=== PATIENT | female | born 1950 | race African-American/Black ===

== ENCOUNTER 2018-04-13 07:01 | Day surgery (SDC) | payer OTHER ==
[2018-04-11 11:20] VITALS: BMI 37.8
[2018-04-13 08:48] VITALS: TEMP 97.6
[2018-04-13 09:16] VITALS: PULSE 60
[2018-04-13 10:24] VITALS: BP 148/79
--- NOTE | 2018-04-16 16:58 | PATH ---
Surgical Pathology Report Patient Name: ANGEL BROWN [facility]. Rec. #: [id number] /Age/Gender: 1950 (Age: 67) / F Account: [id number] Location: U-ENDOSCOPY Taken: 04/13/2018 Received: 04/13/2018 Reported: 04/16/2018 Physicians: Jatinder Bynum M.D. Specimen(s) Received A: BX 2ND PORTION DUODENUM AND DUODENAL BULB B: BX PYLORUS POLYP C: BX ANTRUM D: BX GE JUNCTION E: RECTAL POLYP Clinical History Left upper quadrant pain, gastric polyp, adenoma surveillance Postoperative diagnosis: Gastric polyp, hiatal hernia, duodenitis, rectal polyp Final Diagnosis A. DUODENUM, SECOND PORTION AND DUODENAL BULB, BIOPSY: DUODENAL MUCOSA WITH MODERATE ACUTE AND CHRONIC DUODENITIS AND PRESERVED VILLOUS ARCHITECTURE. B. STOMACH, PREPYLORIC, POLYP, BIOPSY: GASTRIC ANTRAL MUCOSA WITH MODERATE TO SEVERE CHRONIC ACTIVE GASTRITIS AND INTESTINAL METAPLASIA. IMMUNOHISTOCHEMICAL STAIN FOR H. PYLORI IS POSITIVE (RARE). C. STOMACH, ANTRUM, BIOPSY: GASTRIC ANTRAL MUCOSA WITH MODERATE TO SEVERE CHRONIC ACTIVE GASTRITIS. IMMUNOHISTOCHEMICAL STAIN FOR H. PYLORI IS POSITIVE (FEW). D. GE JUNCTION, BIOPSY: SQUAMOUS MUCOSA WITH MILD BASAL CELL HYPERPLASIA CONSISTENT WITH MILD REFLUX ESOPHAGITIS. NO COLUMNAR MUCOSA, INTESTINAL METAPLASIA OR DYSPLASIA IDENTIFIED. E. RECTUM, POLYP, BIOPSY: POLYPOID COLONIC MUCOSA WITH SMALL LYMPHOID AGGREGATE AND FOCAL HYPERPLASTIC FEATURES. Electronically Signed Kimberly Nice M.D. Gross Description A. Received in formalin, labeled "biopsy second portion of duodenum and duodenal bulb" are 4 houser, irregular portions of soft tissue ranging from 0.3-0.4 cm. in greatest dimension. The specimens are submitted in toto in one cassette. B. Received in formalin, labeled "biopsy prepyloric polyp" are 3 houser, irregular portions of soft tissue ranging from 0.3-0.5 cm. in greatest dimension. The specimens are submitted in toto in one cassette. C. Received in formalin, labeled "biopsy antrum" are 5 houser, irregular portions of soft tissue ranging from 0.3-0.6 cm. in greatest dimension. The specimens are submitted in toto in one cassette. D. Received in formalin, labeled "biopsy GE junction" are 2 houser, irregular portions of soft tissue averaging 0.4 cm. in greatest dimension. The specimens are submitted in toto in one cassette. E. Received in formalin, labeled "biopsy polyp rectum" are 2 houser, irregular portions of soft tissue averaging 0.3 cm. in greatest dimension. The specimens are submitted in toto in one cassette. 04/13/2018 [facility]04/13/2018
== END 2018-04-13 10:24 | disposition home or self-care (01) ==
LOC: JASU-ENDO 07:01
PROVIDERS: ATTEND Internal Medicine Gastroenterology
PROC: 0DB98ZX Excision of Duodenum, Via Natural or Artificial Opening Endoscopic, Diagnostic (ICD-10-PCS; 2018-04-13)
PROC: 0DB68ZX Excision of Stomach, Via Natural or Artificial Opening Endoscopic, Diagnostic (ICD-10-PCS; 2018-04-13)
PROC: 0DB38ZX Excision of Lower Esophagus, Via Natural or Artificial Opening Endoscopic, Diagnostic (ICD-10-PCS; 2018-04-13)
PROC: 0DBP8ZX Excision of Rectum, Via Natural or Artificial Opening Endoscopic, Diagnostic (ICD-10-PCS; principal; 2018-04-13 08:00)
DX: Z12.11 Encounter for screening for malignant neoplasm of colon (principal); Z86.010 Personal history of colon polyps; K62.1 Rectal polyp; K64.8 Other hemorrhoids; K57.30 Diverticulosis of large intestine without perforation or abscess without bleeding; K55.20 Angiodysplasia of colon without hemorrhage; K21.0 Gastro-esophageal reflux disease with esophagitis; K44.9 Diaphragmatic hernia without obstruction or gangrene; K31.7 Polyp of stomach and duodenum
CPT/HCPCS: 88305-TC; 88342-TC

== ENCOUNTER 2023-05-15 09:32 | Emergency (ER) | payer OTHER ==
[2023-05-15 09:44] VITALS: TEMP 98.1; BMI 35.8
[2023-05-15 10:59] LABS: BASO % 1.3 % (0-2.0); EOS % 1.1 % (0-4.5); HEMATOCRIT 32.7 % (32.4-45.2); HEMOGLOBIN 10.7 GM/dL (10.7-15.3); LYMPH % 8.6 % (8-40); MCH 31.9 pg (25.7-33.7); MCHC 32.8 g/dl (32.0-36.0); MEAN CELL VOLUME 97.2 fl (80-96); MEAN PLT VOLUME 8.6 fl (7.5-11.1); MONO % 7.9 % (3.8-10.2); NEUT % 81.1 % (42.8-82.8); PLATELET COUNT 285 10^3/uL (134-434); RBC 3.36 M/mm3 (3.60-5.2); RDW 13.9 % (11.6-15.6); WHITE BLOOD COUNT 5.2 K/mm3 (4.0-10.0)
[2023-05-15] MEDS ORDERED: TORSEMIDE 20 MG TABLET (FP) PO SCH (11:00)
[2023-05-15 11:09] LABS: INR 1.29 (0.83-1.09); PROTHROMBIN TIME (PATIENT) 14.9 SEC (9.7-13.0)
[2023-05-15 11:11] LABS: ACTIVATED PTT 34.6 SECONDS (25.2-36.5)
[2023-05-15 11:33] LABS: POTASSIUM 3.1 mmol/L (3.5-5.1)
[2023-05-15 11:34] LABS: ALBUMIN 3.7 g/dl (3.4-5.0); BLOOD UREA NITROGEN 9.9 mg/dL (7-18)
[2023-05-15 11:38] LABS: CREATININE 0.8 mg/dL (0.55-1.3)
[2023-05-15 11:39] LABS: BILIRUBIN,TOTAL 0.6 mg/dL (0.2-1); TOT PROT 7.9 g/dl (6.4-8.2)
[2023-05-15 11:51] LABS: URINE APPEARANCE CLEAR; URINE BILIRUBIN NEGATIVE (NEGATIVE); URINE COLOR YELLOW; URINE GLUCOSE (UA) NEGATIVE (NEGATIVE); URINE KETONE NEGATIVE (NEGATIVE); URINE LEUK ESTERASE NEGATIVE (NEGATIVE); URINE NITRITE NEGATIVE (NEGATIVE); URINE PROTEIN TRACE (NEGATIVE); URINE UROBILINOGEN 0.2 mg/dL (0.2-1.0)
[2023-05-15] MEDS ORDERED: POTASSIUM CHLORIDE ORAL LIQUID 20 MEQ/15 ML PO ONE (12:21)
[2023-05-15] MEDS ORDERED: POTASSIUM CHLORIDE ORAL LIQUID 20 MEQ/15 ML ONE (12:48)
[2023-05-15 15:04] VITALS: RESP 20
[2023-05-15 17:05] VITALS: BP 225/99; PULSE 64
[2023-05-15] MEDS ORDERED: hydrALAZINE HCL 50 MG TABLET (FP) PO ONE (17:05)
[2023-05-15] MEDS ORDERED: hydrALAZINE HCL 50 MG TABLET (FP) ONE (17:06)
== END 2023-05-15 17:26 | disposition left against medical advice (07) ==
LOC: JER 09:32
DX: I10 Essential (primary) hypertension (principal)
CPT/HCPCS: 36415; 80053; 81003; 84484; 85025; 85610; 85730; 87086; 93005; 93010; 99284-25